=== PATIENT | female | born 1970 | race Caucasian/White ===

== ENCOUNTER → 2023-09-14 13:36 | Outpatient (CLI) | payer OTHER, SELFPAY | PROVIDERS: PCP Family Medicine; Visit Provider Physician Assistant Medical | DX: R82.998 Other abnormal findings in urine (principal) | CPT/HCPCS: 87077; 87086; 87186 ==

== ENCOUNTER → 2023-11-02 | Outpatient (CLI) | payer OTHER, SELFPAY ==
--- NOTE | 2023-11-02 07:45 | DI.MG.S_ITS ---
BILATERAL DIGITAL SCREENING MAMMOGRAM 3D/2D WITH CAD: 11/02/2023 CLINICAL: Routine screening. No prior exams were available for comparison. There are scattered areas of fibroglandular density in both breasts (category b / 25%-50% glandular tissue). Current study was also evaluated with a Computer Aided Detection (CAD) system. There is a 3 cm oval mass in the right breast at 9 o'clock anterior depth. There also is a focal asymmetry in the right breast at 9 o'clock middle depth. No other significant masses, calcifications, or other findings are seen in either breast. IMPRESSION: INCOMPLETE: NEEDS ADDITIONAL IMAGING EVALUATION The 3 cm oval mass in the right breast at 9 o'clock anterior depth resembles a cyst and is indeterminate. Additional views with possible ultrasound are recommended. The focal asymmetry in the right breast at 9 o'clock middle depth resembles a lymph node and is indeterminate. Additional views with possible ultrasound are recommended. Based on the Tyrer Cuzick model (a risk assessment model) the patient's lifetime risk is 9.2% and her 10 year risk is 2.5%. According to the ACR, ACS, and NCCN guidelines, an annual breast MRI exam along with mammogram is recommended if the patient's lifetime risk is 20% or greater. This exam was interpreted at Station ID: [id number]. NOTE: For mammograms, a report in lay terms will be sent to the patient. Approximately 15% of breast malignancies will not be visualized mammographically. In the management of a palpable breast mass, a negative mammogram must not discourage biopsy of a clinically suspicious lesion. Electronically Signed By: Pratibha cueva/:11/11/2023 16:03:13 letter sent: Additional Imaging Needed ACR BI-RADS Category 0: Incomplete 3340F
[2023-11-02 08:41] LABS: Add Manual Diff / Slide Review NO; Basophils Absolute Auto 0 /uL (0-100); Basophils Percent Auto 0.6 % (0-2); Eosinophils Absolute Auto 100 /uL (0-450); Eosinophils Percent Auto 1.7 % (2-4); Hematocrit 41.3 % (36-46); Hemoglobin 13.9 g/dL (12.0-16.0); Lymphocytes Absolute Auto 1500 /uL (1100-4500); Lymphocytes Percent Auto 28.9 % (25-40); Mean Corpuscular HGB Conc 33.6 % (30-36); Mean Corpuscular Hemoglobin 29.7 PG (26-34); Mean Corpuscular Volume 88.6 fL (80-100); Monocytes Absolute Auto 300 /uL (0-900); Monocytes Percent Auto 5.7 % (3-14); Neutrophils Absolute Auto 3300 /uL (1500-7000); Neutrophils Percent Auto 63.1 % (50-75); Platelet Count 199 X10^3/uL (150-400); Red Blood Cell Count 4.66 X10^6/uL (4.0-5.2); Red Cell Distribution Width 14.2 % (11.6-14.8); White Blood Cell Count 5.3 X10^3/uL (4.5-11.0)
[2023-11-02 08:53] LABS: Hemoglobin A1C% w Est Avg Glu 5.8 % (4.0-6.0)
[2023-11-02 09:00] LABS: Alanine Aminotransferase 24 IU/L (<35); Albumin 4.3 g/dL (3.5-5.0); Albumin Globulin Ratio 1.5 (1.0-2.8); Alkaline Phosphatase 78 U/L (38-126); Aspartate Aminotransferase 22 IU/L (14-36); BUN Creatinine Ratio 17.6 (6-22); Bilirubin Total 0.6 mg/dL (0.2-1.3); Blood Urea Nitrogen 16 mg/dL (7-17); Calcium 9.5 mg/dL (8.4-10.2); Carbon Dioxide 28 mmol/L (22-32); Chloride 108 mmol/L (98-107); Cholesterol 226 mg/dL (140-199); Estimated Glomerular Filt Rate > 60 mL/min (>60); Globulin 2.9 g/dL (1.7-4.1); Glucose 112 mg/dL (70-100); HDL Cholesterol 55 mg/dL (40-60); HEMOLYSIS < 15 (0-50); LDL Cholesterol Calculated 139 mg/dL (<100); Potassium 4.4 mmol/L (3.4-5.1); Sodium 141 mmol/L (137-145); Total Protein 7.2 g/dL (6.3-8.2); Triglycerides 158 mg/dL (35-150)
[2023-11-02 09:29] LABS: TSH w/ Reflex to FT4 1.45 uIU/mL (0.47-4.68)
[2023-11-02 15:48] LABS: HIV 1 & 2 Ab/Ag 4th Gen Combo NEGATIVE (NEGATIVE); Hep C Virus Ab w/Reflex Quant NEGATIVE s/c (NEGATIVE)
== END ==
PROVIDERS: PCP Family Medicine; Referring Provider Physician Assistant Medical; Visit Provider Family Medicine
DX: Z12.31 Encounter for screening mammogram for malignant neoplasm of breast (principal); R92.323 Mammographic fibroglandular density, bilateral breasts; G25.81 Restless legs syndrome; R53.82 Chronic fatigue, unspecified; Z11.59 Encounter for screening for other viral diseases; Z11.4 Encounter for screening for human immunodeficiency virus [HIV]
CPT/HCPCS: 36415; 77063; 77067; 80053; 80061; 83036; 84443; 85025; 86803; 87389

== ENCOUNTER 2024-02-04 11:21 | Emergency (ER) | payer OTHER, SELFPAY ==
[2024-02-04 11:26] VITALS: BP 129/78; PULSE 79; RESP 22; TEMP 36.9; O2SAT 94; BMI 31.1
--- NOTE | 2024-02-04 11:40 | DI.RAD.S_ITS ---
PROCEDURE: XR RIBS RT MIN 3V W CXR 1V INDICATIONS: fall, pain and redness in area TECHNIQUE: 3 views of the ribs were acquired, along with a single view chest. COMPARISON: None. FINDINGS: Surgical changes and devices: None. Bones and chest wall: No fractures or dislocations. No suspicious bony lesions. Overlying soft tissues appear unremarkable. Lungs and pleura: No pleural effusions or pneumothorax. Lungs appear clear. Mediastinum: Mediastinal contours appear normal. Heart size is normal. IMPRESSION: No displaced rib fracture or pneumothorax. Dictated by: González Bhatti M.D. on 02/04/2024 at 11:04 Approved by: González Bhatti M.D. on 02/04/2024 at 11:05
--- NOTE | 2024-02-04 11:46 | PC.NURSE ---
patient stepped down into their boat gally and fell on her lower right ribs. She has redness and swelling under her skin around the area of her lowest ribs on her right side. she also has two small abrasions on her right knee. She is able to bear weight with pain on her right ribs. She denies local hip pain or knee pain around her knee abrasions. She is having hard time taking a deep breathe due to pain. she does not like taking narcotics for pain and wishes to take Tylenol and ibuprofen as needed.
[2024-02-04 11:58] LABS: Bacteria Urine Few (2-10); Culture Indicated Urine Specimen Cultured; RBC Urine 0-1/HPF (0-5/HPF); Squamous Epithelial Cell Urine 5-10 /HPF (0-5/HPF); Urine Volume 10mL (spun); WBC Urine 30-100/HPF (0-5/HPF)
--- NOTE | 2024-02-04 13:24 | ED_ITS ---
HPI - Back Pain/Injury General Chief Complaint: Back Pain/Injury Stated Complaint: FELL DOWN STAIRS BACK AND HIP PAIN Time Seen by Provider: 02/04/24 13:15 Source: patient History of Present Illness HPI Narrative: 53-year-old female was climbing down ladder into her boat at [employer] in [place] earlier this morning, missed a step, it has a proximally 3-4 feet in elevation, fell backwards into the cabin of the boat, striking her left flank area on a rounded edge of interior cabin table. Complaints of right flank area discomfort, with some bruising. Denies bloody urination. Denies trouble breathing, although there is pain with any movement. She denies weakness numbness to legs. No incontinence urine or stool. No midline back pain upper or lower. No history of prior back surgeries. She has not tried any medications for this thus far Related Data Home Medications Medication Instructions Recorded Confirmed No Known Home Medications 09/22/23 09/22/23 Allergies Allergy/AdvReac Type Severity Reaction Status Date / Time No Known Drug Allergies Allergy Verified 02/04/24 11:31 Review of Systems Review of Systems Narrative: Per HPI Patient History Medical History (Updated 02/04/24 @ 15:28 by Joaquín Emmanuel MD) Mixed hyperlipidemia IFG (impaired fasting glucose) Obesity (BMI 30.0-34.9) Restless leg syndrome (~2016) Chicken pox Human papilloma virus (~1989) Abnormal Pap smear of cervix (~1989) Hemorrhoid Surgical History (Updated 09/18/23 @ 19:08 by Zayda Worrell) Anesthesia History of tonsillectomy (~1973) History of tubal ligation (~2009) History of rhinoplasty (~1986) Family History (Updated 09/18/23 @ 19:10 by Zayda Worrell) Grandfather Cancer Grandmother Diabetes mellitus History of heart disease Hypertension Mental health problem Social History Smoking Status: Never smoker Smoking Status: Never smoker alcohol intake frequency: a few times a month Substance Use Type: marijuana Exam Narrative Exam Narrative: GENERAL: Well-developed patient, in mild distress. HEAD: Atraumatic. Normocephalic. EYES: Pupils equal round and reactive. Extraocular motions intact. No scleral icterus. No injection or drainage. ENT: Nose without bleeding, purulent drainage. Throat without erythema, tonsillar hypertrophy or exudate. Airway patent. NECK: Trachea midline. Non tender CARDIOVASCULAR: Regular rate and rhythm without murmurs, gallops, or rubs. RESPIRATORY: Clear to auscultation. Breath sounds equal bilaterally. No wheezes, rales, or rhonchi. GASTROINTESTINAL: Abdomen soft, non-tender, nondistended. EXTREMITIES: No edema or joint tenderness. BACK: Nontender without deformity or crepitance. Right flank area erythema, proximally 10 x 15 cm, no crepitance, no fluctuance, no active bleeding, no laceration to skin. No tenderness midline to thoracic or lumbar spine. No tenderness to thoracic or lumbar paraspinous musculature NEURO: AOx3. No gross motor deficits. SKIN: No rash or erythema of visible areas Initial Vital Signs Initial Vital Signs: Vital Signs Temperature 98.5 F 02/04/24 11:26 Pulse Rate 79 02/04/24 11:26 Respiratory Rate 22 02/04/24 11:26 Blood Pressure 129/78 02/04/24 11:26 Pulse Oximetry 94 02/04/24 11:26 Oxygen Delivery Method Room Air 02/04/24 11:26 Course Orders Ordered: Discontinued Medications Ketorolac Tromethamine (Ketorolac 30 Mg/Ml Vial) 30 mg IM NOW ONE Stop: 02/04/24 13:25 Last Admin: 02/04/24 13:32 Dose: 30 mg Documented By: NORIS Vital Signs Vital signs: Vital Signs - 8 hr 02/04/24 11:26 Temperature 98.5 F Pulse Rate 79 Respiratory Rate 22 Blood Pressure 129/78 Pulse Oximetry 94 Oxygen Delivery Method Room Air MDM - Back Pain/Injury Lab Data Labs: Lab Results 02/04/24 Range/Units 11:42 Urine RBC 0-1/hpf (0-5/HPF) Urine WBC 30-100/hpf H (0-5/HPF) Ur Squamous Epith Cells 5-10 /hpf H (0-5/HPF) Urine Bacteria Few (2-10) H (None) Ur Culture Indicated? Specimen cultured Micro UA Comment Vol Urine Centrifuged 10ml (spun) Point of Care Testing Test Results Negative Urine Dip Bedside Urine Glucose Negative Bedside Urine Bilirubin - Negative Bedside Urine Ketone - Negative Urine Specific [place] 1.025 Bedside Urine Occult Blood - Negative Bedside Urine pH 6.0 Bedside Urine Protein - Negative Bedside Urine Urobilinogen - Negative Bedside Urine Nitrite - Negative Bedside Urine Leukocytes + 70 Esterase Imaging Data Chest x-ray: Radiologist's Impression: [address] [address] XRay Report Signed Patient: Jennifer Ornelas MR#: [id number] : 1970 Acct:[id number] Age/Sex: 53 / F Date of Service: 02/04/24 Loc: ED Accession Number: [id number] Procedure: XR ribs RT min 3V w CXR1V Ordering Provider: Joaquín Emmanuel MD PROCEDURE: XR RIBS RT MIN 3V W CXR 1V INDICATIONS: fall, pain and redness in area TECHNIQUE: 3 views of the ribs were acquired, along with a single view chest. COMPARISON: None. FINDINGS: Surgical changes and devices: None. Bones and chest wall: No fractures or dislocations. No suspicious bony lesions. Overlying soft tissues appear unremarkable. Lungs and pleura: No pleural effusions or pneumothorax. Lungs appear clear. Mediastinum: Mediastinal contours appear normal. Heart size is normal. IMPRESSION: No displaced rib fracture or pneumothorax. Dictated by: González Bhatti M.D. on 02/04/2024 at 11:04 Approved by: González Bhatti M.D. on 02/04/2024 at 11:05 [facility] Narrative Medical decision making narrative: Right flank pain after fall climbing backwards and ladder anterior cabin of her boat this morning, ecchymoses erythema to the right flank, worse with movement. Neurovascular intact. X-ray right rib series with chest x-ray ordered from [facility]. She does not want any opiate or controlled substance or sedating pain medications, would like some relief however, has not taken oral meds, IM Toradol XRays negative for lung injury, no rib fractures identified. We discussed CT Abdomen Pelvis imaging, declined. We discussed importance of pulmonary toilet, deep breathing, to prevent pneumonia after chest wall injury. Offered incentive spirometry, declined. Offered inhaler, declined. She also declined pain medications and muscle relaxants for discharge. She stated that she would take [id number] pain medications. Advised re-check in clinic this Thursday if symptoms not improving, return precautions if worsening. Home with family per request to be discharged homed Discharge Plan Departure Patient Disposition: Home Clinical Impression: Contusion of flank, Chest wall contusion Activity Restrictions/Additional Instructions: Fall interior cabin boat, glancing blow right table, with right flank right lower chest wall pain and bruising. No laceration that is suturable. X-rays chest with rib series showed no underlying rib injuries, no rib fracture identified. It is still important however to deep breathe to prevent local lung collapse and complications of pneumonia. We discussed pain medications, opiates offered but declined. Continue use of ibuprofen. We discussed inhaler, declined. We discussed further imaging that might include abdomen and pelvis CT imaging, declined at present. Consider recheck of lung exam this Thursday with your regular provider. Return to this/nearest emergency department for any change worsening symptoms or any concerns prior Prescriptions: No Action No Known Home Medications Referrals: Karie Gaston DO [Primary Care Provider] - Stand Alone Forms: Patient Portal/API
[2024-02-04] MEDS: KETOROLAC 30 MG/ML VIAL IM (13:32)
[2024-02-04 15:42] VITALS: BP 134/85; PULSE 64; RESP 14; O2SAT 99
== END 2024-02-04 15:43 | disposition home or self-care (01) ==
PROVIDERS: Emergency Provider Emergency Medicine; PCP Family Medicine
DX: S30.1XXA Contusion of abdominal wall, initial encounter (principal); S20.211A Contusion of right front wall of thorax, initial encounter; W11.XXXA Fall on and from ladder, initial encounter; A49.8 Other bacterial infections of unspecified site; Y93.39 Activity, other involving climbing, rappelling and jumping off; Y92.814 Boat as the place of occurrence of the external cause
CPT/HCPCS: 71101; 81003; 81015; 81025; 87077; 87086; 87186; 96372; 99283; 99284; J1885

== ENCOUNTER → 2024-02-21 10:35 | Outpatient (CLI) | payer OTHER, SELFPAY ==
[2024-02-21 10:57] LABS: Appearance Urine UA CLOUDY; Bilirubin Urine UA NEGATIVE (NEGATIVE); Color Urine UA YELLOW; Glucose Urine UA NEGATIVE (Negative); Ketones Urine UA NEGATIVE (NEGATIVE); Leukocyte Esterase Urine UA 2+ (NEGATIVE); Nitrite Urine UA POSITIVE (Negative); Occult Blood Urine UA 2+ (Negative); Protein Urine UA 1+ (Negative); Specific Gravity Urine UA 1.025 (1.000-1.035); Urobilinogen Urine UA 0.2 E.U./dL (0.2)
[2024-02-21 12:02] LABS: Bacteria Urine Many (>30); RBC Urine 0-1/HPF (0-5/HPF); Squamous Epithelial Cell Urine 0-1 /HPF (0-5/HPF); Urine Volume 10mL (spun); WBC Urine 30-100/HPF (0-5/HPF)
[2024-02-21 12:03] LABS: Culture Indicated Urine Cult Not Indicated
== END ==
PROVIDERS: PCP Family Medicine; Visit Provider Physician Assistant
DX: R30.0 Dysuria (principal)
CPT/HCPCS: 81003; 81015; 87077; 87086; 87186

== ENCOUNTER → 2024-11-29 07:20 | Outpatient (CLI) | payer OTHER, SELFPAY ==
[2024-11-29 08:51] LABS: Cholesterol 256 mg/dL (140-199); HDL Cholesterol 49 mg/dL (40-60); LDL Cholesterol Calculated 172 mg/dL (<100); Triglycerides 173 mg/dL (35-150)
[2024-11-29 09:40] LABS: Hemoglobin A1C% w Est Avg Glu 5.8 % (4.0-6.0)
== END ==
PROVIDERS: PCP Family Medicine; Referring Provider Family Medicine; Visit Provider Family Medicine
DX: E78.2 Mixed hyperlipidemia (principal); R73.01 Impaired fasting glucose
CPT/HCPCS: 36415; 80061; 83036

== ENCOUNTER → 2025-01-31 08:18 | Outpatient (CLI) | payer OTHER, SELFPAY ==
--- NOTE | 2025-01-31 08:20 | DI.MG.S_ITS ---
MM screening mammo BI: 01/31/2025. BI-RADS: 1 CLINICAL: 54-year old female for bilateral screening mammogram. Tyrer-Cuzick lifetime risk of 10.6%. No personal or first-degree family history of breast cancer. PRIOR EXAMS 11/02/2023. MAMMOGRAPHY TECHNIQUE: 2D and 3D (tomosynthesis) digital mammographic views obtained, with additional images as needed for full coverage. Current study was also evaluated with a Computer Aided Detection (CAD) system. DENSITY B. There are scattered areas of fibroglandular density. MAMMOGRAPHY FINDINGS Bilateral: No suspicious mass, asymmetry, microcalcification, or other abnormality seen. No significant change from comparison. IMPRESSION: * No evidence of malignancy. RECOMMENDATIONS Bilateral * Annual screening mammography. OVERALL ASSESSMENT CATEGORY BI-RADS-1: Negative. The [employer] recommends annual screening mammography beginning at age 40 for women with average risk of breast cancer. ELECTRONICALLY SIGNED: Álvaro Montesinos M.D. on 01/31/2025 at 12:19:19 PM PT
== END ==
PROVIDERS: PCP Family Medicine; Referring Provider Family Medicine; Visit Provider Family Medicine
DX: Z12.31 Encounter for screening mammogram for malignant neoplasm of breast (principal)
CPT/HCPCS: 77063; 77067

== ENCOUNTER → 2025-03-09 10:43 | Outpatient (CLI) | payer OTHER, SELFPAY | LOC: LAB 10:44 | PROVIDERS: PCP Family Medicine; Visit Provider Chiropractor | DX: R30.0 Dysuria (principal) | CPT/HCPCS: 87077; 87086; 87186 ==

== ENCOUNTER 2025-04-27 12:17 | Day surgery (SDC) | payer OTHER, SELFPAY ==
[2025-04-21 11:47] VITALS: BMI 30.1
--- NOTE | 2025-04-27 | PATH_ITS ---
[facility] Accession Number: [id number] No. of containers..03 Tissue . 01 Material submitted: . PART A: endometrium - ENDOMETRIAL POLYPS PART B: endocervix - ENDOCERVICAL CURRETTINGS PART C: endometrium - ENDOMETRIAL CURRETTINGS . 01 Diagnosis: A. ENDOMETRIAL POLYPS, BIOPSY: Fragments of endometrial polyps with focal benign simple hyperplasia. Negative for atypical hyperplasia/ endometrioid intraepithelial neoplasia, or malignancy. . B. ENDOCERVIX, CURETTINGS: Scant benign endocervical tissue. Negative for dysplasia or malignancy. . C. ENDOMETRIUM, CURETTINGS: Benign inactive endometrium, consistent with atrophy. Negative for endometrioid intraepithelial neoplasia or malignancy. [facility] 05/05/2025 1632 Local . 01 Comment: As part of ongoing air quality technician, part A is also reviewed by Dr. Farnaz Jaime, who agrees with the interpretation. . 01 Electronically signed: . Natalya Laughlin MD, Pathologist NPI- [id number] . 01 Gross description: . A. Received in formalin with two patient identifiers and endometrial polyps and consists of a 2.5 x 2.0 x 0.9 cm aggregate of ozuna-white, rubbery, morcellated soft tissue admixed with a scant amount of clotted blood, which is entirely submitted into cassette A1. B. Received in formalin with two patient identifiers and endocervical curettings and consists of a 2.5 x 2.0 x 0.5 cm aggregate of clotted blood admixed with ozuna soft tissue, which is filtered and entirely submitted in cassette B1. C. Received in formalin with two patient identifiers and endometrial curetting and consists of a 1.5 x 1.1 x 0.4 cm aggregate of clotted blood admixed with ozuna soft tissue fragments, which is filtered and entirely submitted in cassette C1. ([id number]) /MRV 04/28/2025 2131 Local . 01 Pathologist provided ICD-10: N95.0, N85.00 . 01 CPT . 982681, 405043, 420064 Specimen Comment: A courtesy copy of this report has been sent to [phone] Performed at: [address] [address], [place], [place] [id number] MD Emeterio Wilson MD Phone: [phone]
[2025-04-27 12:37] VITALS: BP 127/88; PULSE 70; RESP 16; TEMP 36.4; O2SAT 97
[2025-04-27 12:38] VITALS: BMI 30.1
[2025-04-27] MEDS: LACTATED RINGERS 1,000 ML 42 ML IV (12:59)
[2025-04-27 16:06] LABS: Appearance Urine UA CLEAR; Bilirubin Urine UA NEGATIVE (NEGATIVE); Color Urine UA YELLOW; Glucose Urine UA NEGATIVE (Negative); Ketones Urine UA TRACE (NEGATIVE); Leukocyte Esterase Urine UA 1+ (NEGATIVE); Nitrite Urine UA NEGATIVE (Negative); Occult Blood Urine UA TRACE-INTACT (Negative); Protein Urine UA NEGATIVE (Negative); Specific Gravity Urine UA 1.015 (1.000-1.035); Urobilinogen Urine UA 0.2 E.U./dL (0.2)
--- NOTE | 2025-04-27 16:24 | PM.PREOP ---
Pre-operative Note COVID-19 COVID-19 status: Not tested Interval Note History & Physical reviewed/Exam performed by Physician: Yes Changes to H&P: No
[2025-04-27 16:25] LABS: pH Urine UA 6.0 (4.5-8.0)
[2025-04-27 16:30] LABS: Culture Indicated Urine Specimen Cultured
--- NOTE | 2025-04-27 16:55 | SUR.OPER ---
Lithotomy on padded OR bed, head on pillow, arms secured on padded arm boards at <90 degrees abduction. Legs secured in padded yellow fins stirrups. Safety strap across abdomen.
[2025-04-27 17:24] VITALS: BP 161/88; PULSE 58; RESP 14; TEMP 36.2; O2SAT 97
[2025-04-27 17:33] VITALS: BP 157/92; PULSE 69; RESP 18; TEMP 36.2; O2SAT 96
[2025-04-27 17:38] VITALS: BP 150/94; PULSE 61; RESP 18; TEMP 36.2; O2SAT 99
--- NOTE | 2025-04-27 18:05 | P.OP_ITS ---
Operative Date/Time/Diagnoses Date of procedure: 04/27/25 Time of procedure: 15:45 Pre-op diagnosis: Postmenopausal bleeding With thickened endometrial stripe on ultrasound Post-op diagnosis: other (Same as above, endometrial polyps) Procedure & Clinicians Procedure: Procedures Operation Date: 04/27/25 13:45 Actual Procedure Side Surgeon p Hysteroscopy with possible biopsies, D&C of the uterus Samuel Mcleod MD Indications: Jennifer presents for evaluation today due to episodic postmenopausal bleeding. Pelvic ultrasound shows: FINDINGS: Uterus: Uterus is dynamic retroverted and normal in size at 8.3 x 5.6 x 4.8 cm. The myometrium is homogeneous. The endometrium measures 9 mm combined thickness. No fibroids seen. Ovaries: The right ovary measures 2.7 x 1.4 x 1.1 cm, with a calculated ovarian volume of 2 cc. The left ovary measures 3 x 1.9 x 1.3 cm, with a calculated ovarian volume of 2 cc. The ovaries have a normal sonographic appearance. Less than 12 follicles can be seen in each ovary. No adnexal masses are seen. Anechoic left ovarian cyst measuring 1.6 cm. Other: No pathologic free abdominal or pelvic fluid. IMPRESSION: 1. Endometrium measures 9 mm in this patient with postmenopausal bleeding. -Endometrial biopsy is recommended. 2. Left ovarian simple cyst measuring 1.6 cm. After discussion of all options for further evaluation and treatment, we are now proceeding with diagnostic hysteroscopy with possible biopsies and dilation and curettage of the uterus. She is admitted now for that surgery. Surgeon: Samuel Mcleod Anesthesia Type: General Operative Notes Findings: The endometrial cavity contains 3 bland appearing polyps, the inferior most arises from approximately 5:00 a.m. on the endometrial surface of the lower uterine segment with a 2nd and 3rd polyp, also bland in appearance, which seemed to be arising from about 9 in 10:00 a.m. up into the right cornua. All polyps were removed during the course of the surgery. Following removal, the endometrial cavity was seemed to be largely unremarkable with bland endometrium and a curettage was performed and submitted as separate specimens. Closure Type: not applicable Specimen(s): endometrial curettings and endometrial polyp Applied: none Estimated blood loss (mL): 15 Blood products transfused: none Procedure in detail: With the patient under general LMA in the modified dorsal lithotomy position, the perineum, vagina, and lower abdomen were prepped and draped in the usual fashion for hysteroscopy with endometrial ablation. A pre-surgical safety time- out was then taken in accordance with [facility] Main OR protocols. A bivalve speculum was inserted in the vagina and the cervix visualized. The anterior lip of the cervix was grasped with a single-tooth tenaculum and the endocervical canal was then dilated to 6 mm diameter. Hysteroscope was placed through the endocervical canal into the endometrial cavity and the cavity was visualized with the findings as noted above. Utilizing the MyoSure Lite device, all 3 endometrial polyps were resected and submitted as an aggregate specimen.. There were no other localized abnormalities within the endometrial cavity. Both tubal ostia were visualized. The hysteroscope was then withdrawn and a fractional dilation and curettage was accomplished with separate pathologic specimen submitted for the endometrial and endocervical curettings. The tenaculum was then removed from the anterior lip of the cervix and no bleeding was encountered. The speculum was then removed from the vagina and the patient awakened from anesthesia. She was then transferred to the PACU for a period of observation and recovery having tolerated the procedure well. Complications: none Post-operative Condition: stable Disposition: PACU Plan for aftercare: Routine post-op care.
== END 2025-04-27 18:12 | disposition home or self-care (01) ==
PROVIDERS: Nurse Anesthetist, Certified Registered; PCP Family Medicine; Referring Provider Obstetrics & Gynecology; Visit Provider Obstetrics & Gynecology
PROC: 0UDB8ZZ Extraction of Endometrium, Via Natural or Artificial Opening Endoscopic (ICD-10-PCS; CPT 58558; principal; 2025-04-27 13:45)
DX: N95.0 Postmenopausal bleeding (principal); N84.0 Polyp of corpus uteri
CPT/HCPCS: 58558; 81001; 87077; 87086; 87186; J1100; J2250; J2405; J2704; J3010

== ENCOUNTER → 2025-06-08 08:19 | Outpatient (CLI) | payer OTHER, SELFPAY ==
[2025-06-08 08:42] LABS: Hemoglobin A1C% w Est Avg Glu 5.8 % (4.0-6.0)
[2025-06-08 08:57] LABS: Cholesterol 231 mg/dL (140-199); HDL Cholesterol 62 mg/dL (40-60); Triglycerides 145 mg/dL (35-150)
== END ==
PROVIDERS: PCP Family Medicine; Referring Provider Family Medicine; Visit Provider Family Medicine
DX: Z00.00 Encounter for general adult medical examination without abnormal findings (principal); R73.01 Impaired fasting glucose; E78.2 Mixed hyperlipidemia
CPT/HCPCS: 36415; 80061; 83036